=== PATIENT | female | born 1990 | race Caucasian/White ===

== ENCOUNTER 2019-01-08 09:52 | Emergency (ER) | payer OTHER ==
[2019-01-08 10:27] VITALS: BP 124/68; PULSE 78; TEMP 98.1; BMI 20.2
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
== END 2019-01-08 11:10 | disposition home or self-care (01) ==
LOC: JER 09:52
CPT/HCPCS: 99282-25

== ENCOUNTER 2021-02-03 13:38 | Emergency (ER) | payer OTHER ==
[2021-02-03 13:43] VITALS: BP 129/91; PULSE 83; TEMP 98.9; BMI 21.4
== END 2021-02-03 14:16 | disposition home or self-care (01) ==
LOC: JERFT 13:38
DX: R09.89 Other specified symptoms and signs involving the circulatory and respiratory systems (principal)
CPT/HCPCS: 70360-TC-FY; 99283-25

== ENCOUNTER 2022-10-31 13:42 | Emergency (ER) | payer OTHER ==
[2022-10-31 13:57] VITALS: RESP 18; BMI 22.6
[2022-10-31] MEDS ORDERED: ACETAMINOPHEN 1000 MG/100 ML BAG IVPB ONE (15:03)
[2022-10-31] MEDS ORDERED: ACETAMINOPHEN INJECTION 100 ML IVPB ONE (15:23)
[2022-10-31 16:25] LABS: BASO % 1.9 % (0-2.0); HEMOGLOBIN 13.7 GM/dL (10.7-15.3); LYMPH % 36.4 % (8-40); MCH 28.8 pg (25.7-33.7); MCHC 33.5 g/dl (32.0-36.0); MEAN CELL VOLUME 85.9 fl (80-96); MEAN PLT VOLUME 8.6 fl (7.5-11.1); MONO % 7.6 % (3.8-10.2); NEUT % 50.1 % (42.8-82.8); PLATELET COUNT 336 10^3/uL (134-434); RBC 4.77 M/mm3 (3.60-5.2); RDW 13.9 % (11.6-15.6); WHITE BLOOD COUNT 6.4 K/mm3 (4.0-10.0)
[2022-10-31 16:27] LABS: INR 0.97 (0.83-1.09); PROTHROMBIN TIME (PATIENT) 11.3 SEC (9.7-13.0)
[2022-10-31 16:30] LABS: ACTIVATED PTT 28.9 SECONDS (25.2-36.5)
[2022-10-31 16:35] LABS: CHLORIDE 106 mmol/L (98-107); SODIUM 137 mmol/L (136-145)
[2022-10-31 16:36] LABS: CALCIUM 8.8 mg/dL (8.5-10.1)
[2022-10-31 16:38] LABS: ANION GAP 6 MMOL/L (8-16); BLOOD UREA NITROGEN 26.1 mg/dL (7-18); CO2 25 mmol/L (21-32); GLUCOSE,RANDOM 323 mg/dL (74-106); LIPASE 231 U/L (73-393)
[2022-10-31 16:42] LABS: BILIRUBIN,TOTAL 0.2 mg/dL (0.2-1); CREATININE 0.9 mg/dL (0.55-1.3); SGOT/AST 13 U/L (15-37); SGPT/ALT 15 U/L (13-61); TOT PROT 6.7 g/dl (6.4-8.2)
[2022-10-31 16:44] LABS: ALK PHOS 64 U/L (45-117)
[2022-10-31 17:02] VITALS: BP 129/87; PULSE 71; TEMP 97.4
[2022-10-31] MEDS ORDERED: SODIUM CHLORIDE 1,000 ML IV STA (17:25)
[2022-10-31] MEDS ORDERED: MIDAZOLAM HCL 2 MG/2 ML SINGLE DOSE VIAL IVPUSH ONE (17:25)
[2022-10-31] MEDS ORDERED: MIDAZOLAM HCL 2 MG/2 ML SINGLE DOSE VIAL ONE ×2 (17:30→17:36)
[2022-10-31] MEDS: morphine CARPU-JECT 2 MG/1 ML DISP.SYRIN IVPUSH ONE ×2 (18:49→18:52)
== END 2022-10-31 21:03 | disposition home or self-care (01) ==
LOC: JER 13:42
PROC: 3E0333Z Introduction of Anti-inflammatory into Peripheral Vein, Percutaneous Approach (ICD-10-PCS; principal; 2022-10-31)
PROC: 3E033NZ Introduction of Analgesics, Hypnotics, Sedatives into Peripheral Vein, Percutaneous Approach (ICD-10-PCS; 2022-10-31)
PROC: 3E0337Z Introduction of Electrolytic and Water Balance Substance into Peripheral Vein, Percutaneous Approach (ICD-10-PCS; 2022-10-31)
DX: R14.0 Abdominal distension (gaseous) (principal); F84.0 Autistic disorder
CPT/HCPCS: 36415; 74177-TC; 80053; 83605; 83690; 84702; 84703; 85025; 85610; 85730; 86850; 86900; 86901; 99285-25; Q9967

== ENCOUNTER 2022-12-17 20:59 | Emergency (ER) | payer OTHER ==
[2022-12-17 21:22] VITALS: BP 103/69; PULSE 68; RESP 18; TEMP 97.9; BMI 21.4
[2022-12-17] MEDS ORDERED: ACETAMINOPHEN 325 MG TABLET (FP) PO ONE (22:47)
[2022-12-17] MEDS ORDERED: ACETAMINOPHEN 325 MG TABLET (FP) ONE (22:52)
== END 2022-12-17 22:53 | disposition home or self-care (01) ==
LOC: JERFT 20:59 → JER 20:59 → JERFT 22:53
DX: H02.846 Edema of left eye, unspecified eyelid (principal); S00.83XA Contusion of other part of head, initial encounter; W22.8XXA Striking against or struck by other objects, initial encounter
CPT/HCPCS: 82962; 99282-25